=== PATIENT | female | born 1935 | race Caucasian/White ===

== ENCOUNTER → 2017-03-17 | Day surgery (SDC) | payer MEDICARE ==
[2017-03-14 08:48] VITALS: BP 179/67
[2017-03-14 09:27] LABS: BILIRUBIN NEGATIVE (NEGATIVE); BLOOD TRACE-LYSED (NEGATIVE); CLARITY SL CLOUDY (CLEAR); COLOR YELLOW (YELLOW); GLUCOSE NEGATIVE (NEGATIVE); KETONE NEGATIVE (NEGATIVE); LEUKO ESTERASE 2+ (NEGATIVE); NITRITE NEGATIVE (NEGATIVE); PROTEIN NEGATIVE (NEGATIVE); UROBILINOGEN 0.2 E.U./dl (0.2-1.0)
[2017-03-14 09:40] LABS: BASO # 0.1 10*3/uL (0.0-0.1); BASO % 0.9 % (0.0-1.0); EOS # 0.1 10*3/uL (0.0-0.4); HEMATOCRIT 37.3 % (37.0-47.0); HEMOGLOBIN 11.8 g/dl (12.0-16.0); LYMPH # 1.7 10*3/uL (1.3-4.4); LYMPH % 24.9 % (27.0-41.0); MEAN CELL VOLUME 89.9 fl (81.0-99.0); MEAN CORPUSCULAR HGB 28.4 pg (27.0-31.0); MEAN CORPUSCULAR HGB CONC 31.6 g/dl (33.0-37.0); MONO # 0.8 10*3/uL (0.1-1.0); MONO % 11.3 % (3.0-9.0); NEUT # 4.2 10*3/uL (2.3-7.9); NEUT % 60.3 % (47.0-73.0); PLATELET COUNT AUTOMATED 217 10*3/uL (130-400); RED BLOOD COUNT 4.15 10*6/uL (4.10-5.10); RED CELL DISTRI WIDTH 21.3 % (0-14.5); WHITE BLOOD COUNT 6.9 10*3/uL (4.8-10.8)
[2017-03-14 09:42] LABS: BACTERIA 3+
[2017-03-14 09:54] LABS: BUN 14 mg/dl (7-24); CARBON DIOXIDE 27 mmol/L (21-32); CHLORIDE 105 mmol/L (98-107); EST GLOM FILT AFRICAN AMERICAN > 60 ml/min; GLUCOSE 106 mg/dL (65-99); POTASSIUM 4.2 mmol/L (3.5-5.1); SODIUM 142 mmol/L (136-145)
[2017-03-14 09:57] LABS: INTERNATIONAL NORM RATIO 0.9 (2.0-3.5)
[~2017-03-17] VITALS: Ht 162.5 cm; Wt 69.4 kg
[~2017-03-17] MED LIST: ASPIRIN81 M1 PO; BACTRIM DS 8001 TA1 PO; BRILINTA90 M1 PO; CARDIZEM CD240 M1 PO; CARTIA XT180 MG PO; CEPHALEXIN500 M1 PO; DIFLUCAN150 MG PO; DILTIAZEM 24HR360 MG PO; DIOVAN320 MG PO; FLONASE ALLERG9.9 ML NS; FLOVENT DI50 MCG/Act PO; Hydrocortisone30 GM PO; IMDUR SA30 MG PO; ISOSORBIDE MON120 MG PO; LIPITOR40 MG PO; LISINOPRIL40 MG PO; MACROBID100 M1 PO; METOPROLOL SUCC50 M1 PO; PERCOCET 325 MG1 TA5 PO; PRINIVIL20 M1 PO; PRINIVIL5 M1 PO; PROTONIX40 MG PO; SYMBICORT1 AE1 INH; ULTRAM50 MG PO; VITAMIN D50000 I3 PO
--- NOTE | ~2017-03-17 | O ---
[place], [place] OPERATIVE NOTE NAME: JENNIFER MILESJOSE Benavides UNIT #: [id number] ROOM: DOCTOR: RAKESH ALEX MD BIRTHDATE: [birth year] DOS: 03/17/2017 PREOPERATIVE DIAGNOSIS: Grade 2 symptomatic internal hemorrhoids. POSTOPERATIVE DIAGNOSIS: Grade 2 symptomatic internal hemorrhoids. PROCEDURE: Doppler-guided hemorrhoidal artery ligation. SURGEON: Rakesh Alex MD SUPERVISOR COLD ROLLING: LAURA. ANESTHESIA: MAC with local. INDICATIONS: This is a 81-year-old lady with symptomatic internal hemorrhoids, was here for the above-mentioned procedure. The procedure and its complications were explained to the patient in detail. Complications that were discussed included but were not limited to, bleeding, pain and recurrence and she agreed to proceed. DESCRIPTION OF PROCEDURE: After identifying the patient, the patient was brought to the operating suite and laid in the supine position. After IV sedation was administered, she was placed in lithotomy position and the parts were then painted and draped in the usual sterile fashion. Time-out procedure was called. Doppler probe was introduced and then under direct vision and with the help of a Doppler signal, hemorrhoidal artery ligation was performed at 1, 3, 5, 7, 9 and 11 o'clock positions. Thereafter, the probe was removed and a digital rectal exam revealed no thrombosed hemorrhoids or bleeding. At this point, local anesthesia was infiltrated in a perianal fashion and topical anesthesia was placed as well. The patient tolerated the procedure well. She was taken to the recovery room in a stable fashion. There were no complications. Dr. Rakesh Alex, the attending surgeon, was present throughout the operating case. [place], [place] OPERATIVE NOTE NAME: VITO MILES UNIT #: [id number] ROOM: DOCTOR: RAKESH ALEX MD BIRTHDATE: [birth year] Rakesh Alex MD CM:OPRECORD:OPERATIVE NOTE [id number] RAKESH ALEX MD 03/17/17 1409 interface
[2017-03-17 09:40] VITALS: BP 16/56
[2017-03-17 11:18] VITALS: BP 124/54
[2017-03-17 11:33] VITALS: BP 145/54
[2017-03-17 11:48] VITALS: BP 138/60
[2017-03-17 12:16] VITALS: BP 131/90
== END | disposition home or self-care (01) ==
LOC: SDC 03-13 11:00
PROVIDERS: Surgery
DX: K64.1 Second degree hemorrhoids (principal); I10 Essential (primary) hypertension; K21.9 Gastro-esophageal reflux disease without esophagitis; I25.2 Old myocardial infarction; I25.10 Atherosclerotic heart disease of native coronary artery without angina pectoris; I73.9 Peripheral vascular disease, unspecified; E78.00 Pure hypercholesterolemia, unspecified; Z87.01 Personal history of pneumonia (recurrent); Z85.3 Personal history of malignant neoplasm of breast; Z95.818 Presence of other cardiac implants and grafts; Z87.891 Personal history of nicotine dependence; Z80.9 Family history of malignant neoplasm, unspecified

== ENCOUNTER → 2017-11-10 | Outpatient (CLI) | payer MEDICARE | END | disposition home or self-care (01) | LOC: CARD 11-08 10:30 | DX: I34.0 Nonrheumatic mitral (valve) insufficiency (principal) ==

== ENCOUNTER → 2018-01-11 | Outpatient (CLI) | payer MEDICARE | END | disposition home or self-care (01) | LOC: MAMMO 09:17 | DX: Z12.31 Encounter for screening mammogram for malignant neoplasm of breast (principal); M79.621 Pain in right upper arm ==

== ENCOUNTER 2018-02-10 11:46 | Emergency (ER) | payer MEDICARE ==
[~2018-02-10] VITALS: Ht 160 cm; Wt 54.4 kg
== END 2018-02-10 15:11 | disposition home or self-care (01) ==
LOC: ED 11:46
DX: I80.02 Phlebitis and thrombophlebitis of superficial vessels of left lower extremity (principal); I10 Essential (primary) hypertension; I25.10 Atherosclerotic heart disease of native coronary artery without angina pectoris; E78.5 Hyperlipidemia, unspecified; M81.0 Age-related osteoporosis without current pathological fracture; Z88.8 Allergy status to other drugs, medicaments and biological substances; Z79.899 Other long term (current) drug therapy; Z87.891 Personal history of nicotine dependence

== ENCOUNTER 2018-04-12 11:04 | Inpatient (IN) | payer MEDICARE ==
[2018-04-12] VITALS (8 sets, daily range): BP systolic 154–236; BP diastolic 58–91
[~2018-04-12] VITALS: Ht 162.5 cm; Wt 64.6 kg
--- NOTE | ~2018-04-12 | CON ---
[place], [place] REPORT OF CONSULTATION NAME: VITO MILES [facility] [id number] UNIT #: [id number] ROOM: [facility] DOCTOR: CHANTE COLLINS DO BIRTHDATE: [birth year] DOS: 04/12/2018 REASON FOR CONSULTATION: Accelerated hypertension. HISTORY OF PRESENT ILLNESS: Extremely pleasant 82-year-old female carries a prior history of hypertension of unspecified duration. She does report that in the past her blood pressure has been in the 150-160 range. This is longstanding in nature. She follows her blood pressure at home weekly checking her blood pressure on the left wrist while sitting down with her feet on the ground uncrossed. She is not holding her wrist at heart level. She does get similar readings during her blood pressure checks at her PCP's office. These are done at the time that she has blood draws. History is also significant for coronary artery disease with previous myocardial infarction. This was in the distant past, unclear as to how long ago. She reports having had numerous cardiac stents placed in the past, also has peripheral vascular disease with stents to her lower extremities as well; again, details on this are unclear. History of hyperlipidemia, osteoporosis, breast cancer with a past right mastectomy. She is here stating that she was in her usual state of health seen at her PCP's office today for routine followup visit. She was noted to have accelerated hypertension with a systolic blood pressure of 200. Again, she was asymptomatic. She states she had taken all of her medications today per her routine, but for this reason was referred to the Emergency Room for further evaluation. On arrival here, she was noted to have a blood pressure of 236/84. Ultimately given hydralazine in the Emergency Room 20 mg IV x 1, which resulted in improvement in blood pressure down to 167/89. She underwent a chest x-ray in the Emergency Room where she had a normal appearing pericardial mediastinum with emphysematous changes; no other anomalies. Labs in the Emergency Room include chemistries that showed normal renal function with BUN and creatinine 12 and 0.81, bicarbonate 27, potassium 4.6, calcium 8.7 with albumin 3.8 for a normal corrected calcium. CBC was obtained, which was unremarkable. She was admitted to the ICU. Unfortunately, her blood pressure increased to 207/91 by the time she arrived to the ICU and was given another dose of IV hydralazine. Again, she otherwise feels well and is insistent that she is compliant with all of her medications as prescribed, which includes diltiazem CD 180 mg daily, Diovan 320 mg daily, lisinopril 40 mg daily, Catapres TTS 2 patch q. week and metoprolol 75 mg b.i.d. She denies use of NSAIDs, herbal supplements, cold medications or any other potential offending agents. She has been under increased stress in her life in the past few days, admits to feeling anxious secondary to this. She denies any excess sodium intake in her diet, though she is not compliant with a low salt diet. She denies edema, palpitations, tachycardia, diaphoresis, night sweats, notes her weight is stable. She has a history of peripheral vascular disease notes with stenting of the legs many years ago, recently started experiencing claudication again. PAST MEDICAL HISTORY: See above. ALLERGIES: LISTED TO PLAVIX. CURRENT MEDICATIONS: Lovenox 40 mg subcutaneously daily. [place], [place] REPORT OF CONSULTATION NAME: VITO MILES UNIT #: [id number] ROOM: [facility] DOCTOR: CHANTE COLLINS DO BIRTHDATE: [birth year] SOCIAL HISTORY: She resides at home. FAMILY HISTORY: Noncontributory. REVIEW OF SYSTEMS: See HPI. A full 10-point review of systems was performed and obtained the above noted measures, are unremarkable except as noted in the HPI. PHYSICAL EXAMINATION: VITAL SIGNS: Blood pressure is 207/91, pulse 85, respirations 17, temperature 97.8 degrees Fahrenheit. GENERAL: A well-appearing female, awake, alert and oriented x3. Currently in no apparent distress. HEENT: Head is normocephalic, atraumatic. Conjunctivae pink and moist. Oral mucosa is pink and moist. NECK: There are no carotid bruits. There is no thyromegaly. There is no adenopathy. There is no JVD appreciated. LUNGS: Clear to auscultation and percussion. HEART: Regular, without S4, S3 gallop, rub, murmur or heave noted. ABDOMEN: Soft, positive bowel sounds x4. No abdominal or flank bruits appreciated. No rebound, guarding, rigidity noted. No CVA tenderness was appreciated. NEUROLOGIC: Grossly nonfocal. EXTREMITIES: No clubbing or cyanosis. No edema noted. Pulses positive by radial, +1 bilateral dorsalis pedis. SKIN: Dry without rash, ulcers, lesions, or petechiae appreciated. LABORATORY DATA: Today, WBC 7.6, hemoglobin 12.7, hematocrit 40.3, platelets are 230,000. Sodium is 137, potassium 4.6, chloride 103, CO2 of 27, BUN 12, creatinine 0.81, glucose was 95, magnesium 1.9, calcium 8.7, albumin 3.8, total protein 7.9, ALT is 25, AST is 20, alkaline phosphatase is 106, total bilirubin 0.3. IMPRESSION: Accelerated hypertension, etiology is unclear at present. She states she has been compliant with all of her medications, has not been taking any offending agents, does admit to increased anxiety in her life recently and this may explain why her blood pressure is somewhat increased today, but I would still wonder if she may have missed any of her medications today, but she feels confident about this otherwise,. She does take 5 different medications plus Imdur as an outpatient, has been on this regimen for several years, which does raise the question of underlying secondary hypertension in this elderly patient with patient with atherosclerotic disease and recent worsening symptoms of claudication; however, exact etiology is unclear. I would expect to see issues with her renal function or electrolytes given the fact if renal artery stenosis is present given the fact that she is on both an MINGO inhibitor and an angiotensin receptor anjali. RECOMMENDATIONS: Would resume all of her outpatient medications, continue hydralazine on p.r.n. basis, following her electrolytes and renal function here closely. Renal ultrasound has been ordered. Await these results. If we find [place], [place] REPORT OF CONSULTATION NAME: VITO MILES UNIT #: [id number] ROOM: [facility] DOCTOR: CHANTE COLLINS DO BIRTHDATE: [birth year] either bilateral small kidneys or asymmetry between her 2 kidneys and her blood pressure remains difficult to control then renal angiogram may be warranted. We will suggest checking echocardiogram to evaluate for LVH. Note, she did have an EKG performed on admission. There was no evidence of LVH by EKG and a previous echocardiogram performed in October 2017 also did not show any evidence of LVH, so I suspect this was unlikely. Thank you for allowing us to participate in the care of the patient. CHANTE COLLINS DO CM:CONSTR:REPORT OF CONSULTATION 1438 04/13/18 0031 interface
--- NOTE | ~2018-04-12 | PR ---
[place], [place] PROGRESS NOTE [id number] UNIT #: [id number] ROOM: [facility] DOCTOR: CHANTE COLLINS DO BIRTHDATE: [birth year] DOS: 04/13/2018 SUBJECTIVE: This patient offers no complaints today. Denies orthopnea, PND, dyspnea, chest pain, palpitations. States she is feeling well and is anxious for discharge. PHYSICAL EXAMINATION: VITAL SIGNS: Blood pressure 122/88, pulse 66, respiratory rate 16, temperature was 98.2 degrees ____. GENERAL APPEARANCE: A well-appearing female, awake, alert, in no apparent distress. HEAD AND NECK: Conjunctivae pink and moist. LUNGS: Clear to auscultation and percussion. HEART: Regular, without S4, S3, rub, murmur or heave noted. ABDOMEN: Soft, positive bowel sounds x 4. EXTREMITIES: No clubbing, cyanosis, no edema noted. LABORATORY DATA: From today, WBC 6.3, hemoglobin 12.6, hematocrit 39.9, platelets 219,000. Sodium is 150, potassium 4.1, chloride 103, CO2 25, BUN 15, creatinine 0.8, glucose 115, calcium 8.8, mag is 1.9. TSH 1.83, ____ 21. Renal ultrasound from 04/12/2018 showed symmetric kidneys without hydronephrosis with right kidney measuring 1.2 cm size, left measuring 1.8 cm in size. Renal cortex was preserved ____ appreciated. Renal artery velocities were unremarkable. ASSESSMENT AND PLAN: Hypertension, improved. The patient's outpatient medications have been resumed as of today with a notable exception that lisinopril 4 mg every day has been stopped. The patient has been ordered amlodipine 5 mg every day. Catapres patch which had fallen off yesterday prior to admission has not been replaced yet. She has been ordered Toprol-XL 75 mg b.i.d. instead of Lopressor 75 mg b.i.d. Workup thus far for secondary causes of hypertension is unremarkable with the above described renal ultrasound and Dopplers. RECOMMENDATIONS: Would replace the patient's Catapres patch today and then change it every Monday from this point on. Switch Toprol-XL with Lopressor 75 mg b.i.d. The patient is anxious for discharge and can be discharged to home today from my perspective. She should be seen in our clinic in followup consultation in approximately 2-4 weeks post-discharge and I have asked that she bring her blood pressure cuff to our clinic so it can be calibrated against our office cuff. The above was discussed with nursing staff as well. [place], [place] PROGRESS NOTE NAME: VITO MILES Kennedy UNIT #: [id number] ROOM: [facility] DOCTOR: CHANTE COLLINS DO BIRTHDATE: [birth year] CHANTE COLLINS DO CM:MARCOS [id number] CHANTE COLLINS DO 04/13/18 2219 interface
[~2018-04-12 11:04] MED LIST changes: -METOPROLOL SUCC50 M1 PO; +METOPROLOL TART75 MG PO
[2018-04-12 11:40] LABS: BASO # 0.1 10*3/uL (0.0-0.1); BASO % 0.8 % (0.0-1.0); EOS # 0.2 10*3/uL (0.0-0.4); EOS % 2.1 % (1.0-4.0); HEMATOCRIT 40.3 % (37.0-47.0); HEMOGLOBIN 12.7 g/dl (12.0-16.0); LYMPH # 1.9 10*3/uL (1.3-4.4); LYMPH % 24.8 % (27.0-41.0); MEAN CELL VOLUME 97.8 fl (81.0-99.0); MEAN CORPUSCULAR HGB 30.8 pg (27.0-31.0); MEAN CORPUSCULAR HGB CONC 31.5 g/dl (33.0-37.0); MEAN PLATELET VOLUME 11.2 fl (9.6-12.3); MONO % 13.1 % (3.0-9.0); NEUT # 4.4 10*3/uL (2.3-7.9); NEUT % 58.5 % (47.0-73.0); PLATELET COUNT AUTOMATED 230 10*3/uL (130-400); RED BLOOD COUNT 4.12 10*6/uL (4.10-5.10); RED CELL DISTRI WIDTH 13.2 % (0-14.5); WHITE BLOOD COUNT 7.6 10*3/uL (4.8-10.8)
[2018-04-12 11:49] LABS: ACT PARTIAL THROMBO TIME 23.3 SECONDS (20.8-31.5); INTERNATIONAL NORM RATIO 0.9 (2.0-3.5)
[2018-04-12 11:53] LABS: ALBUMIN 3.8 gm/dl (3.1-4.5); ALKALINE PHOSPHATASE 106 U/L (45-117); BUN 12 mg/dl (7-24); CHLORIDE 103 mmol/L (98-107); CREATININE 0.81 mg/dL (0.55-1.02); LIPASE 166 U/L (73-393); POTASSIUM 4.6 mmol/L (3.5-5.1); SGOT/AST 20 IU/L (3-35); SGPT/ALT 25 U/L (12-78); SODIUM 137 mmol/L (136-145); TOTAL PROTEIN 7.9 gm/dL (6.4-8.2)
[2018-04-12 12:00] LABS: TROPONIN I < 0.015 ng/ml (<0.045)
[2018-04-12] MEDS ORDERED: Catapres-Tts 20.2 MG TD (13:06)
[2018-04-12] MEDS ORDERED: FERROUS SULFAT325 MG PO (13:10)
[2018-04-12] MEDS ORDERED: NITROSTAT0.4 MG SL (13:11)
[2018-04-12 14:52] LABS: BILIRUBIN NEGATIVE (NEGATIVE); BLOOD TRACE-LYSED (NEGATIVE); CLARITY CLEAR (CLEAR); COLOR YELLOW (YELLOW); GLUCOSE NEGATIVE (NEGATIVE); KETONE NEGATIVE (NEGATIVE); LEUKO ESTERASE 1+ (NEGATIVE); NITRITE NEGATIVE (NEGATIVE); SPECIFIC GRAVITY 1.015 (1.005-1.030); UROBILINOGEN 0.2 E.U./dl (0.2-1.0)
[2018-04-12 15:01] LABS: BACTERIA TRACE; RBC 0-2 rbc/hpf (0-2)
[2018-04-13] VITALS: BP 132/53
[2018-04-13 04:00] VITALS: BP 180/60
[2018-04-13 06:40] LABS: BASO # 0.1 10*3/uL (0.0-0.1); BASO % 0.8 % (0.0-1.0); EOS # 0.1 10*3/uL (0.0-0.4); EOS % 1.7 % (1.0-4.0); HEMATOCRIT 39.9 % (37.0-47.0); HEMOGLOBIN 12.6 g/dl (12.0-16.0); LYMPH # 1.5 10*3/uL (1.3-4.4); LYMPH % 22.9 % (27.0-41.0); MEAN CELL VOLUME 96.1 fl (81.0-99.0); MEAN CORPUSCULAR HGB 30.4 pg (27.0-31.0); MEAN CORPUSCULAR HGB CONC 31.6 g/dl (33.0-37.0); MEAN PLATELET VOLUME 11.3 fl (9.6-12.3); MONO # 0.8 10*3/uL (0.1-1.0); MONO % 12.9 % (3.0-9.0); NEUT # 3.9 10*3/uL (2.3-7.9); NEUT % 61.2 % (47.0-73.0); PLATELET COUNT AUTOMATED 219 10*3/uL (130-400); RED BLOOD COUNT 4.15 10*6/uL (4.10-5.10); RED CELL DISTRI WIDTH 13.3 % (0-14.5); WHITE BLOOD COUNT 6.3 10*3/uL (4.8-10.8)
[2018-04-13 06:47] LABS: ACT PARTIAL THROMBO TIME 23.6 SECONDS (20.8-31.5)
[2018-04-13 07:02] LABS: BUN 15 mg/dl (7-24); CHLORIDE 103 mmol/L (98-107); POTASSIUM 4.1 mmol/L (3.5-5.1); SODIUM 137 mmol/L (136-145)
[2018-04-13 08:00] VITALS: BP 172/88
[2018-04-13] MEDS ORDERED: PROAIR HFA8.5 GM INH (10:02)
[2018-04-13] MEDS ORDERED: AMLODIPINE BESYL5 MG PO (10:02)
[2018-04-13 12:00] VITALS: BP 190/76
[2018-04-13] MEDS ORDERED: PREDNISONE10 MG PO (12:42)
[2018-04-13 13:29] VITALS: BP 158/64
== END 2018-04-13 14:30 | disposition home or self-care (01) | DRG 305 ==
LOC: ED 11:04 → EDHOLD 12:17 → ICCU 12:17
PROVIDERS: Emergency Medicine; Internal Medicine
DX: I16.1 Hypertensive emergency (principal); I73.9 Peripheral vascular disease, unspecified; E78.5 Hyperlipidemia, unspecified; I25.10 Atherosclerotic heart disease of native coronary artery without angina pectoris; M81.0 Age-related osteoporosis without current pathological fracture; Z87.891 Personal history of nicotine dependence; I10 Essential (primary) hypertension

== ENCOUNTER → 2018-05-23 | Outpatient (CLI) | payer MEDICARE ==
[~2018-05-23] MED LIST changes: +AMLODIPINE BESYL5 MG PO; +Catapres-Tts 20.2 MG TD; +FERROUS SULFAT325 MG PO; +NITROSTAT0.4 MG SL; +PREDNISONE10 MG PO; +PROAIR HFA8.5 GM INH
--- NOTE | ~2018-05-23 | PF ---
[place], [place] PULMONARY FUNCTION TEST [id number] UNIT #: [id number] ROOM: DOCTOR: DAGO BENAVIDES MD,ANY BIRTHDATE: [birth year] DOS: 05/23/2018 ORDERED BY: Juju Benitez, nurse practitioner. HISTORY: The patient recorded an 82-year-old female, height of 64 inches, weight of 157 pounds with diagnosis of COPD reported. Active symptoms, shortness of breath with exertion, nonproductive cough, rare wheezing was also known. History of tobacco use was noted for the patient as 2 packs of cigarettes per day for 43 years. Tobacco cessation was reported 14 years ago. SPIROMETRY: The FVC was recorded 2.06 liters, 81% predicted value normal. FEV1 of 1.57 liters as 81% predicted value normal, ratio of FEV1/FVC recorded as 76%. No postbronchodilator improvement noted. The lung volume and thoracic gas volume recorded as 75%, residual volume 72%, total lung capacity 74%. The patient lung diffusion was recorded 60% without correction of carbon monoxide hemoglobin values. The patient's airway resistance and passive conductance were noted normal. FINAL IMPRESSION: Current test is suggestive of only mild restrictive lung disease for the patient. Etiology to be correlated with the clinical history and radiology data. ANY LOZA MD CM:PFREPORT:PULMONARY FUNCTION TEST 0920 1010 ANY BENAVIDES MD
== END | disposition home or self-care (01) ==
LOC: CP 11:59
DX: J44.9 Chronic obstructive pulmonary disease, unspecified (principal)

== ENCOUNTER → 2018-10-19 | Outpatient (CLI) | payer MEDICARE ==
[2018-10-19 11:18] LABS: BASO # 0.1 10*3/uL (0.0-0.1); EOS # 0.1 10*3/uL (0.0-0.4); EOS % 2.2 % (1.0-4.0); HEMATOCRIT 33.9 % (37.0-47.0); HEMOGLOBIN 10.6 g/dl (12.0-16.0); LYMPH % 32.1 % (27.0-41.0); MEAN CELL VOLUME 100.3 fl (81.0-99.0); MEAN CORPUSCULAR HGB 31.4 pg (27.0-31.0); MEAN CORPUSCULAR HGB CONC 31.3 g/dl (33.0-37.0); MEAN PLATELET VOLUME 10.6 fl (9.6-12.3); MONO # 0.9 10*3/uL (0.1-1.0); MONO % 14.3 % (3.0-9.0); NEUT # 3.1 10*3/uL (2.3-7.9); NEUT % 50.1 % (47.0-73.0); PLATELET COUNT AUTOMATED 261 10*3/uL (130-400); RED BLOOD COUNT 3.38 10*6/uL (4.10-5.10); RED CELL DISTRI WIDTH 13.8 % (0-14.5); WHITE BLOOD COUNT 6.2 10*3/uL (4.8-10.8)
[2018-10-19 11:44] LABS: ALBUMIN 3.4 gm/dl (3.1-4.5); BUN 15 mg/dl (7-24); CHLORIDE 106 mmol/L (98-107); CREATININE 0.87 mg/dL (0.55-1.02); PHOSPHOROUS 4.2 mg/dL (2.5-4.9); POTASSIUM 4.2 mmol/L (3.5-5.1); SODIUM 140 mmol/L (136-145)
[2018-10-19 13:28] LABS: BILIRUBIN NEGATIVE (NEGATIVE); BLOOD NEGATIVE (NEGATIVE); CLARITY CLOUDY (CLEAR); COLOR YELLOW (YELLOW); GLUCOSE NEGATIVE (NEGATIVE); KETONE NEGATIVE (NEGATIVE); LEUKO ESTERASE 2+ (NEGATIVE); NITRITE NEGATIVE (NEGATIVE); PH 5.5 (5.0-9.0); SPECIFIC GRAVITY 1.025 (1.005-1.030); UROBILINOGEN 0.2 E.U./dl (0.2-1.0)
[2018-10-19 13:45] LABS: BACTERIA 2+; RBC 0-2 rbc/hpf (0-2); WBC 16-20 wbc/hpf (0-5)
== END | disposition home or self-care (01) ==
LOC: LAB 10:32
PROVIDERS: Internal Medicine Nephrology
DX: I10 Essential (primary) hypertension (principal)

== ENCOUNTER → 2020-05-12 | Outpatient (CLI) | payer MEDICARE | END | disposition home or self-care (01) | LOC: US 13:34 | DX: I65.23 Occlusion and stenosis of bilateral carotid arteries (principal); I25.10 Atherosclerotic heart disease of native coronary artery without angina pectoris; I10 Essential (primary) hypertension; Z95.5 Presence of coronary angioplasty implant and graft ==

== ENCOUNTER → 2020-09-21 | Outpatient (CLI) | payer MEDICARE | END | disposition home or self-care (01) | LOC: US 14:59 | PROVIDERS: ATTEND Internal Medicine Cardiovascular Disease | DX: I73.9 Peripheral vascular disease, unspecified (principal) ==

== ENCOUNTER → 2021-07-05 | Outpatient (CLI) | payer MEDICARE | END | disposition home or self-care (01) | LOC: RAD 10:11 | PROVIDERS: ATTEND Internal Medicine | DX: M19.041 Primary osteoarthritis, right hand (principal) ==

== ENCOUNTER 2022-01-18 10:44 | Emergency (ER) | payer MEDICARE ==
[~2022-01-18] VITALS: Ht 162.5 cm; Wt 66.2 kg
[2022-01-18] MEDS ORDERED: METHOCARBAMOL500 M1 PO (15:05)
[2022-01-18] MEDS ORDERED: PREDNISONE20 M1 PO (15:05)
== END 2022-01-18 15:16 | disposition home or self-care (01) ==
LOC: ED 10:44
DX: M54.32 Sciatica, left side (principal); Z88.8 Allergy status to other drugs, medicaments and biological substances; Z79.899 Other long term (current) drug therapy; Z98.890 Other specified postprocedural states; Z87.891 Personal history of nicotine dependence

== ENCOUNTER → 2022-01-25 | Outpatient (CLI) | payer MEDICARE ==
[~2022-01-25] MED LIST changes: +METHOCARBAMOL500 M1 PO; +PREDNISONE20 M1 PO
[2022-01-25 10:02] LABS: BUN 19 mg/dl (7-24); CHLORIDE 103 mmol/L (98-107); CHOLESTEROL 187 mg/dL (<200); CREATININE 0.77 mg/dL (0.55-1.02); LDL CHOLESTEROL 54 mg/dL (9-159); POTASSIUM 3.9 mmol/L (3.5-5.1); SGOT/AST 15 IU/L (3-35); SGPT/ALT 25 U/L (12-78); SODIUM 135 mmol/L (136-145); TRIGLYCERIDES 343 mg/dl (<150)
== END | disposition home or self-care (01) ==
LOC: LAB 09:13
PROVIDERS: ATTEND Internal Medicine Cardiovascular Disease
DX: I25.10 Atherosclerotic heart disease of native coronary artery without angina pectoris (principal)

== ENCOUNTER 2022-03-23 11:59 | Emergency (ER) | payer MEDICARE ==
[~2022-03-23] VITALS: Wt 64.9 kg
[2022-03-23] MEDS ORDERED: NEURONTIN300 MG PO (12:32)
[2022-03-23] MEDS ORDERED: CARVEDILOL12.5 MG PO (12:32)
[2022-03-23] MEDS ORDERED: CYCLOBENZAPRINE5 M3 PO (12:33)
[2022-03-23] MEDS ORDERED: CEPHALEXIN500 M1 PO (13:33)
[2022-03-23] MEDS ORDERED: METHOCARBAMOL500 M1 PO (13:36)
[2022-03-23] MEDS ORDERED: PREDNISONE20 M1 PO (13:36)
== END 2022-03-23 15:09 | disposition home or self-care (01) ==
LOC: ED 11:59
DX: L03.116 Cellulitis of left lower limb (principal); M54.42 Lumbago with sciatica, left side; Z88.8 Allergy status to other drugs, medicaments and biological substances; Z79.899 Other long term (current) drug therapy; Z90.49 Acquired absence of other specified parts of digestive tract; Z98.890 Other specified postprocedural states; Z87.891 Personal history of nicotine dependence

== ENCOUNTER 2022-05-27 10:04 | Inpatient (IN) | payer MEDICARE ==
[~2022-05-27] VITALS: Ht 162.6 cm; Wt 61.7 kg
[~2022-05-27 10:04] MED LIST changes: +AMLODIPINE BESY10 MG PO; +ASPIRIN ADULT L81 M1 PO; +CARVEDILOL12.5 MG PO; +CYCLOBENZAPRINE10 MG PO; +CYCLOBENZAPRINE5 M3 PO; +LIPITOR10 MG PO; +MELOXICAM15 MG PO; +NEURONTIN300 MG PO; +VENT7GM INH; +VITAMIN D250 MC1 PO
[2022-05-27 10:09] VITALS: BP 157/82
[2022-05-27 10:53] LABS: HEMATOCRIT 31.8 % (37.0-47.0); MEAN CORPUSCULAR HGB 31.4 pg (27.0-31.0); MEAN CORPUSCULAR HGB CONC 32.4 g/dl (33.0-37.0); MEAN PLATELET VOLUME 10.2 fl (9.6-12.3); PLATELET COUNT AUTOMATED 254 10*3/uL (130-400); RED BLOOD COUNT 3.28 10*6/uL (4.10-5.10); RED CELL DISTRI WIDTH 13.2 % (0-14.5); WHITE BLOOD COUNT 18.8 10*3/uL (4.8-10.8)
[2022-05-27 10:54] LABS: MANUAL DIFF REFLEX YES
[2022-05-27 10:58] LABS: BILIRUBIN Negative (Negative); BLOOD 2+ (Negative); CLARITY Cloudy (Clear); COLOR Dark Yellow (Yellow); GLUCOSE Negative (Negative); KETONE Trace (Negative); LEUKO ESTERASE Negative (Negative); NITRITE Negative (Negative); PH 5.5 (4.5-8.0)
[2022-05-27 11:06] LABS: BACTERIA 2+; RBC 16-20 rbc/hpf (0-2)
[2022-05-27 11:09] LABS: ALKALINE PHOSPHATASE 63 U/L (45-117); BUN 10 mg/dl (7-24); CHLORIDE 98 mmol/L (98-107); CREATININE 0.63 mg/dL (0.55-1.02); LIPASE 63 U/L (73-393); POTASSIUM 2.9 mmol/L (3.5-5.1); SGOT/AST 12 IU/L (3-35); SGPT/ALT 10 U/L (12-78); SODIUM 131 mmol/L (136-145); TOTAL PROTEIN 6.9 gm/dL (6.4-8.2)
[2022-05-27 11:14] LABS: BASOPHILS 1 % (0-1); PLATELET SUFFICIENCY NORMAL (NORMAL); TOTAL CELLS COUNTED 100 #CELLS
[2022-05-27 14:35] VITALS: BP 140/58
[2022-05-27 15:55] VITALS: BP 132/45
[2022-05-27 17:07] VITALS: BP 159/50
[2022-05-27 17:10] VITALS: BP 148/92
[2022-05-28] VITALS: BP 125/40
[2022-05-28 05:14] LABS: ALKALINE PHOSPHATASE 59 U/L (45-117); BUN 11 mg/dl (7-24); CHLORIDE 101 mmol/L (98-107); CREATININE 0.71 mg/dL (0.55-1.02); POTASSIUM 2.9 mmol/L (3.5-5.1); SGOT/AST 12 IU/L (3-35); SGPT/ALT 10 U/L (12-78); SODIUM 136 mmol/L (136-145); TOTAL PROTEIN 6.4 gm/dL (6.4-8.2)
[2022-05-28 06:06] LABS: HEMATOCRIT 30.6 % (37.0-47.0); MEAN CELL VOLUME 98.7 fl (81.0-99.0); MEAN CORPUSCULAR HGB 31.9 pg (27.0-31.0); MEAN CORPUSCULAR HGB CONC 32.4 g/dl (33.0-37.0); MEAN PLATELET VOLUME 11.3 fl (9.6-12.3); PLATELET COUNT AUTOMATED 236 10*3/uL (130-400); RED CELL DISTRI WIDTH 13.4 % (0-14.5); WHITE BLOOD COUNT 14.2 10*3/uL (4.8-10.8)
[2022-05-28 06:13] LABS: MANUAL DIFF REFLEX YES
[2022-05-28 06:59] LABS: PLATELET SUFFICIENCY NORMAL (NORMAL); TOTAL CELLS COUNTED 100 #CELLS
[2022-05-28 08:00] VITALS: BP 141/44
[2022-05-28 12:00] VITALS: BP 107/74
[2022-05-28 16:00] VITALS: BP 142/60
[2022-05-28 20:00] VITALS: BP 150/59
[2022-05-29] VITALS: BP 136/61
[2022-05-29 05:40] LABS: BUN 12 mg/dl (7-24); CHLORIDE 104 mmol/L (98-107); SODIUM 137 mmol/L (136-145)
[2022-05-29 08:00] VITALS: BP 170/64
[2022-05-29 12:00] VITALS: BP 98/69
[2022-05-29 14:42] LABS: BILIRUBIN Negative (Negative); BLOOD Negative (Negative); CLARITY Clear (Clear); COLOR Dark Yellow (Yellow); GLUCOSE Negative (Negative); KETONE Negative (Negative); LEUKO ESTERASE Negative (Negative); NITRITE Positive (Negative)
[2022-05-29 16:00] VITALS: BP 126/55
[2022-05-29 20:00] VITALS: BP 144/50
[2022-05-30] VITALS: BP 123/50
[2022-05-30 04:53] LABS: BUN 11 mg/dl (7-24); CHLORIDE 106 mmol/L (98-107); CREATININE 0.61 mg/dL (0.55-1.02)
[2022-05-30 05:01] LABS: SODIUM 141 mmol/L (136-145)
[2022-05-30 05:02] LABS: POTASSIUM 4.1 mmol/L (3.5-5.1)
[2022-05-30 06:07] LABS: BASO # 0.1 10*3/uL (0.0-0.1); BASO % 1.1 % (0.0-1.0); EOS # 0.7 10*3/uL (0.0-0.4); HEMATOCRIT 29.6 % (37.0-47.0); LYMPH # 1.5 10*3/uL (1.3-4.4); LYMPH % 18.1 % (27.0-41.0); MEAN CELL VOLUME 99.7 fl (81.0-99.0); MEAN CORPUSCULAR HGB 32.3 pg (27.0-31.0); MEAN CORPUSCULAR HGB CONC 32.4 g/dl (33.0-37.0); MEAN PLATELET VOLUME 10.9 fl (9.6-12.3); MONO # 1.2 10*3/uL (0.1-1.0); MONO % 14.4 % (3.0-9.0); NEUT # 4.6 10*3/uL (2.3-7.9); NEUT % 56.9 % (47.0-73.0); PLATELET COUNT AUTOMATED 292 10*3/uL (130-400); RED BLOOD COUNT 2.97 10*6/uL (4.10-5.10); RED CELL DISTRI WIDTH 13.4 % (0-14.5)
[2022-05-30 08:00] VITALS: BP 112/54
[2022-05-30] MEDS ORDERED: HYDROCODONE-AC1 EAC1 PO (09:20)
[2022-05-30] MEDS ORDERED: AUGMENTIN 875-875 MG PO (09:20)
== END 2022-05-30 10:38 | disposition home health service (06) | DRG 871 ==
LOC: ED 10:04 → EDHOLD 15:41 → 4E 15:41 → 5E 05-28 14:39
PROVIDERS: Emergency Medicine; Registered Nurse; ADMIT Family Medicine; ATTEND Family Medicine
DX: A41.9 Sepsis, unspecified organism (principal); E43 Unspecified severe protein-calorie malnutrition; N30.00 Acute cystitis without hematuria; E87.1 Hypo-osmolality and hyponatremia; I25.10 Atherosclerotic heart disease of native coronary artery without angina pectoris; D72.829 Elevated white blood cell count, unspecified; E87.6 Hypokalemia; I73.9 Peripheral vascular disease, unspecified; R33.9 Retention of urine, unspecified; I10 Essential (primary) hypertension; E78.5 Hyperlipidemia, unspecified; Z90.49 Acquired absence of other specified parts of digestive tract; Z95.5 Presence of coronary angioplasty implant and graft; Z87.891 Personal history of nicotine dependence; Z80.3 Family history of malignant neoplasm of breast; Z88.8 Allergy status to other drugs, medicaments and biological substances; Z68.23 Body mass index [BMI] 23.0-23.9, adult

== ENCOUNTER 2022-07-03 20:02 | Emergency (ER) | payer MEDICARE ==
[~2022-07-03 20:02] MED LIST changes: +AUGMENTIN 875-875 MG PO; +HYDROCODONE-AC1 EAC1 PO
[2022-07-03 20:17] LABS: MEAN CELL VOLUME 95.9 fl (81.0-99.0); MEAN CORPUSCULAR HGB CONC 32.3 g/dl (33.0-37.0); MEAN PLATELET VOLUME 10.1 fl (9.6-12.3); PLATELET COUNT AUTOMATED 267 10*3/uL (130-400); RED BLOOD COUNT 3.65 10*6/uL (4.10-5.10); RED CELL DISTRI WIDTH 15.8 % (0-14.5); WHITE BLOOD COUNT 20.4 10*3/uL (4.8-10.8)
[2022-07-03 20:20] LABS: MANUAL DIFF REFLEX YES
[2022-07-03 20:41] LABS: ALKALINE PHOSPHATASE 68 U/L (45-117); BUN 23 mg/dl (7-24); CHLORIDE 107 mmol/L (98-107); CREATININE 0.85 mg/dL (0.55-1.02); POTASSIUM 3.8 mmol/L (3.5-5.1); SGOT/AST 25 IU/L (3-35); SGPT/ALT 15 U/L (12-78); SODIUM 138 mmol/L (136-145); TOTAL CELLS COUNTED 100 #CELLS; TOTAL PROTEIN 7.2 gm/dL (6.4-8.2)
[2022-07-03 20:42] LABS: PLATELET SUFFICIENCY NORMAL (NORMAL); POLYCHROMASIA SLIGHT
[2022-07-03 21:05] LABS: ACT PARTIAL THROMBO TIME 122.1 SECONDS (20.0-32.1)
== END 2022-07-03 20:57 | disposition short-term general hospital (02) ==
LOC: ED 20:02
PROVIDERS: Emergency Medicine
DX: I21.3 ST elevation (STEMI) myocardial infarction of unspecified site (principal); I25.10 Atherosclerotic heart disease of native coronary artery without angina pectoris; E78.5 Hyperlipidemia, unspecified; I10 Essential (primary) hypertension; Z87.891 Personal history of nicotine dependence; Z90.49 Acquired absence of other specified parts of digestive tract; Z95.5 Presence of coronary angioplasty implant and graft; Z79.82 Long term (current) use of aspirin; Z88.8 Allergy status to other drugs, medicaments and biological substances